=== PATIENT | female | born 1970 | race Caucasian/White ===

== ENCOUNTER → 2016-10-22 | Day surgery (SDC) | payer OTHER ==
[2016-10-22] VITALS (16 sets, daily range): BP systolic 112–132; BP diastolic 59–75; PULSE 61–82; RESP 9–17; O2SAT 89–100
[~2016-10-22] VITALS: Ht 165.1 cm; Wt 92.5 kg
[~2016-10-22] MED LIST: ASCO250T7 PO; Acetaminophen IV 1,000 MG in IV Premix 1 EACH IV ONE; Atropine 0.4 mg/mL Inj IVPUSH PRN; Atropine 0.4 mg/mL Inj ONE; Bupivacaine-MPF 0.5% W/EPI 30 mL Inj INFILTRATE ONE; CHOL10008 PO; Dexamethasone 4 mg/mL Inj IVPUSH PRN; Dexamethasone 4 mg/mL Inj ONE; EPHEDrine Sulfate 50 mg/mL Inj IM PRN; EPHEDrine Sulfate 50 mg/mL Inj IVPUSH PRN; FERR-83 PO; Glycopyrrolate 0.2 MG/ML 1mL Inj ONE; HYDROmorphone 0.5 mg/0.5 mL iSecure Syringe ONE; HYDROmorphone 1 mg/mL Inj IVPUSH PRN; INTE30PE3 IM; LISI-567 PO; Labetalol 5 mg/mL 4 mL Inj IV PRN; Lactated Ringer's 1,000 ML IV ONE; Lactated Ringer's 1,000 ML IV SCH; Lactated Ringer's 500 ML IV PRN; Neostigmine 1 mg/mL 10 mL Inj ONE; Ondansetron 2 mg/mL 2 mL Inj IVPUSH PRN; Ondansetron 2 mg/mL 2 mL Inj ONE; Phenylephrine 10,000 mCg/mL Inj IVPUSH PRN; Propofol 10,000 mCg/mL 20 mL Inj ONE; Rocuronium 10 mg/mL 5 mL Inj ONE; SIMV20TA4 PO; fentaNYL-PF 50 mCg/mL 2 mL Inj IVPUSH PRN; fentaNYL-PF 50 mCg/mL 2 mL Inj ONE; hydrALAZINE 20 mg/mL Inj IVPUSH PRN; hydrOXYzine Inj 50 MG/1 mL SDV IM PRN; oxyCODONE-Acetamin 5-325 mg Tablet PO PRN
[2016-10-22] MEDS: Lactated Ringer's 1,000 ML IV SCH ×2 (05:40→07:32)
[2016-10-22 06:56] LABS: BASOPHILS % (AUTO) 0.2 % (0-3); EOSINOPHILS % (AUTO) 1.3 % (0-5); MONOCYTES % (AUTO) 11.9 % (4-12); Mean Corpuscular Hemoglobin 29.3 pg (27.0-35.0); Mean Corpuscular Volume 83.6 fL (81-100); NEUTROPHILS % (AUTO) 58.2 % (40-74); Platelet Count 315 bil/L (150-400)
--- NOTE | 2016-10-22 07:05 | PCM.HPANE ---
Patient Data Surgeon Admitting Provider: Attending Provider:Olivia Jones MD Primary Care Physician:Jared Benoit MD Other Provider:Camelia Dong Anesthesia Reason for Visit Abnormal Uterine,Neoplasm Of Unspecified Behavior Ht/WT & BMI Height (Feet): 5 Height (Inches): 5.00 Weight (Kilograms): 92.5 Body Mass Index 33.00 Allergies Coded Allergies: Penicillins (Verified Allergy, Unknown, rash in childhood, 10/15/16) pt tolerates amoxicillin with no reaction Past Anesthesia History Anesthesia History: Denies:: Abnormal Airway, Anesthesia Reactions, Difficult Intubation, Fam Anesthesia Reaction, Fam Malignant Hypertherm, Malignant Hyperthermia Diabetes History Hx Diabetes?: No MRSA MRSA: No Medications Hypertension Medication: Yes Home Meds Incl Beta Obie: No Reported Medications Cholecalciferol (Vitamin D3) (Vitamin D3)1,000 Unit Tab.chew1,000 Unit PO DAILY 10/15/16 Ascorbic Acid (Vitamin C)250 Mg Tab.[id number] Mg PO BID 30 Days Ref 0 10/15/16 Ferrous Sulfate 325 Mg Occphp311 Mg PO BID 30 Days Ref 0 10/15/16 Interferon Beta-1A (Avonex Pen)30 Mcg/0.5 Ml Pen.ij.kit30 Mcg IM WEEKLY 10/15/16 Simvastatin 20 Mg Miwasb07 Mg PO HS Ref 0 10/15/16 Lisinopril 20 Mg [id number] Mg PO DAILY 30 Days Ref 0 10/15/16 History History of ENT Problems?: No HEENT History: Denies:: Abnormal Airway Cataracts Difficult Intubation Dysphagia Glaucoma Hearing Problem Sinus Problem TMJ Denture Type: None Teeth Condition: Within Normal Limits Hx of Heart Problems?: Yes Cardiovascular History: Positive for:: Hypertension Irregular Heartbeat (occ with MS shots ) Denies:: AICD Abdominal Aortic Aneurism Atrial Fibrillation Cardiac Surgery Chest Pain Congestive Heart Failure Coronary Artery Disease Heart Murmur Pacemaker Rheumatic Fever Valvular Heart Disease Hx of Respiratory Problem?: No Respiratory History: Denies:: Asthma COPD Emphysema Oxygen Administration Pneumonia Tuberculosis Use of C-PAP Machine Hx Neurologic Problems?: Yes Neurological History: Positive for:: Dizziness (occasional) Multiple Sclerosis (loss of feeling, lack of balance coordination) Denies:: Alzheimer's Disease Parkinson's Disease Seizures Hx of GI Problems?: No Gastrointestinal History: Denies:: Cirrhosis Diverticulitis Gall Bladder Disease Gastroesphageal Reflux Gastrointestinal Bleeding Heartburn Hepatitis Hiatal Hernia Liver Disease Rectal Bleeding Hx of Problems?: No Genitourinary History: Denies:: Urinary Tract Infection Female Hx: Denies:: Currently Problems with Breasts? Skin History: Denies:: History Skin Disorders? Pressure Ulcers Hx Musculoskeletal Problems?: Yes Musculoskeletal History: Positive for:: Back Injury (right hip sciatica) Denies:: Fibromyalgia Myasthenia Gravis Systemic Lupus Hx of Psycho/Social Problems?: No Psycho Social History: Denies:: Anxiety Hx Depression Hx Surgeries?: Yes (c section, lasik) Hx Any Other Health Problems?: Yes Other History: Denies:: Thyroid Disease History Blood Transfusions: Positive for:: Accept Blood Products? Denies:: Blood Transfusions Hx Diabetes: No Hx Alcohol Use: YesAlcoholic Drinks Per Day: holidays onlyHx Substance Use: No (second hand marijuana only) Stop/Bang S-Snoring: Do You Snore Loudly: No T-Tired: feel tired, fatigued: No O-Obsered: Observed not breath: No P-Blood Pressure: treated: Yes B- Body Mass Index > 35 kg/m2: No A- Age over 50: No N- Neck Large Circumference: No G- Gender Male: No WARD Total Score: 1 Risk Assessment Category Category 1A: Patient has history of documented sleep apnea, and HAS NOT received any narcotic, sedative or anesthesia administration during this stay. Category 1B: Patient has history of documented sleep apnea, and HAS received any narcotic , sedative or anesthesia administration during this stay Category 2: Patient has SUSPECTED Obstructive Sleep Apnea, and HAS received any narcotic , sedative or anesthesia administration during this stay. Category 3: Patient has SUSPECTED Obstructive Sleep Apnea and HAS NOT received narcotic, sedative or anesthesia administration during this stay. Category 4: Outpatient in Procedural Areas with known sleep apnea or who screen positive for High Risk via the STOP/BANG questionnaire. Exam Exam Vital Signs Vital Signs Date Time Temp Pulse Resp B/P Pulse Ox O2 Delivery O2 Flow Rate FiO2 10/22/16 06:46 36.6 74 16 124/72 96 Room Air General Appearance: Alert, Oriented X3, Cooperative, Mild Distress HEENT/AIRWAY: MP 1, Neck Movement (from), Mouth Opening (wnl) Lungs: Clear to Auscultation, Normal Air Movement (from) Heart: Exam Unremarkable Meds/Labs/Diagnostics Admission Meds Current Medications Lactated Ringer's (Lr) 1,000 ml @ 120 mls/hr Q8H20M IV Last administered on t 05:40; Start 10/22/16 at 05:00; Stop 10/22/16 at 13:19 Labs Test 10/22/16 06:45 White Blood Count 9.0th/mm3 (3.8-10.1) Red Blood Count 4.34mil/mm3 (3.90-5.20) Hemoglobin 12.7g/dL (12.0-15.6) Hematocrit 36.3% (35.0-46.0) Mean Corpuscular Volume 83.6fL (81-100) Mean Corpuscular Hemoglobin 29.3pg (27.0-35.0) Mean Corpuscular Hemoglobin Concent 35.0% (32.0-37.0) Red Cell Distribution Width 13.1% (12.3-15.4) Platelet Count 315bil/L (150-400) Neutrophils (%) (Auto) 58.2% (40-74) Lymphocytes (%) (Auto) 28.1% (14-46) Monocytes (%) (Auto) 11.9% (4-12) Eosinophils (%) (Auto) 1.3% (0-5) Basophils (%) (Auto) 0.2% (0-3) Plan Impression Patient chart reviewed, patient interviewed and anesthestic plan with risks, benefits, and alternatives discussed, and informed consent obtained. ASA Physical Status: ASA2 Mod Systemic Disease Anesthetic Plan: GA Bene/Risks/Altern/Consents: Yes HP Complete Prior to Induction: Yes Vitor Oliveros MD Oct 22, 2016 07:05
--- NOTE | 2016-10-22 11:41 | DIS ---
[address] [address] DISCHARGE SUMMARY PATIENT: REYNOLD MILLER : 1970 MR#: [id number] ADMIT: 10/22/2016 JOB ID: [id number] DIS: DATE OF DISCHARGE: 10/22/2016 This is a 45-year-old female status post hysteroscopy, D and C, laparoscopy, right RSO with lysis of adhesion. The procedure was not complicated. Plan to discharge her home when patient could ambulate well, urinate well, and the pain well controlled. She is instructed to come back to the office in two weeks for followup. She is instructed that if there is heavy vaginal bleeding, severe abdominal pain, foul-smelling discharge, fever more than 100.4, she needs to call the office or go to the ER for evaluation. Percocet and Motrin given for postop pain.
--- NOTE | 2016-10-22 11:49 | PCM.ANEP1 ---
Post Anesthesia PACU Phase 1 Assessment Vital Signs Vital Signs Date Time Temp Pulse Resp B/P Pulse Ox O2 Delivery O2 Flow Rate FiO2 10/22/16 11:41 63 15 124/68 98 Simple Mask 10 10/22/16 11:30 61 9 125/66 90 Nasal Cannula 4 10/22/16 11:20 68 14 132/71 89 Room Air 10/22/16 11:15 71 10 126/73 100 Simple Mask 10 10/22/16 11:10 72 10 120/72 98 Simple Mask 10 10/22/16 11:05 36.3 61 17 126/68 98 Simple Mask 10 10/22/16 06:46 36.6 74 16 124/72 96 Room Air Anesthetic Administered: GA Level of Alertness: Awake, talking RUTH's with Equal Strength: Yes Pain: Yes Pain Scale Score: 4 Nausea or Vomiting: No CV Function & Hydration Stable: Yes Airway Device: Endotrachial Tube Lungs: Clear to Auscultation, Normal Air Movement (from) PACU Phase 2 Assessment Complications: No Follow up Care: No Patient Instructions Provided: N/A Vitor Oliveros MD Oct 22, 2016 11:49
--- NOTE | 2016-10-22 12:01 | OP ---
[address] [address] OPERATIVE REPORT PATIENT: REYNOLD MILLER : 1970 MR#: [id number] ADMIT: 10/22/2016 JOB ID: [id number] DATE OF SURGERY: 10/22/2016 SURGEON: Olivia Jones M.D. GLAZING DEPARTMENT SUPERVISOR: Libby Yeh M.D. SUPERVISOR PUMPING physician as administrative library assistant for this procedure is necessary to get a complete and also for exposure. PREOPERATIVE DIAGNOSIS(ES): 1. A 45-year-old female, with irregular uterine bleeding. Failed office endometrial biopsy. 2. Symptomatic right pelvic mass likely right ovarian endometrioma. POSTOPERATIVE DIAGNOSIS(ES): 1. A 45-year-old female, with irregular uterine bleeding. Failed office endometrial biopsy. 2. Symptomatic right pelvic mass likely right ovarian endometrioma. INDICATION OF THE PROCEDURE: 1. A 45-year-old female, with irregular uterine bleeding. Failed office endometrial biopsy. 2. Symptomatic right pelvic mass likely right ovarian endometrioma. This is a 45-year-old female. She presented to the office for two reasons, one is pelvic discomfort and imaging. Noticed complex right ovarian cyst, likely endometrioma and also the patient has irregular vaginal bleeding. Office procedure tried for endometrial biopsy but failed. May be due to history of section caused kinking of her uterine cavity. Discussed with patient about the finding. Plan was made to have an hysteroscopy, D and C, and a laparoscopy, right salpingo-oophorectomy. Discussed the benefit, risk and alternatives of the procedure. The patient understood there is risk of infection, bleeding, perforation of the uterus, injury to the organs around the uterus including but not limited to the ureters, bladder, major vessels, nerves, and the bowels. Discussed with the patient that especially for 9 cm cyst which is likely endometrioma that made significant adhesions around the cyst that increased the risk of injury to other organs, and the patient also agreed for a laparotomy if the procedure could not be performed by laparoscopy. Informed consent signed. The patient also understood that cannot 100% exclude the risk of malignancy, although based on the findings, the possibility is very low. PROCEDURE IN DETAIL: The patient was transferred to operating room after anesthesia was noted to be adequate. She was placed in dorsal lithotomy position. She was prepared and draped as normal sterile fashion. A hysteroscopy was performed first. A speculum inserted to vagina to expose the cervix. The cervix was grasped by a single-tooth tenaculum. The uterus was carefully sounded to 8 cm and the cervix was dilated gradually from 4 to 7 mm. It was noted the difficulty in office is because of significant kinking at the internal cervical os. Then, the hysteroscopy scope was inserted to the uterine cavity and the uterine cavity was examined and noticed thickened endometrium, especially close to the internal os of cervix. There is no polyp or other abnormal finding of the uterine cavity. The scope was removed and a sharp curettage was performed. The specimen was then sent for pathology. At this time, the procedure started for laparoscopy. A Veress needle inserted into the pedicle area and after confirmed proper insertion, CO2 gas inserted to form pneumoperitoneum. At this time, the patient all the sudden has bradycardia to 40, 20 and there was loss of heart rates. Then the CO2 gas released immediately and CPR was performed for about 10 seconds and the patient's heart rate recovered gradually to 30, 40 and 60s and communicated with anesthesiologist that the patient vitals all became to normal and the procedure was allowed to continue. So CO2 gas was re-inserted to form pneumoperitoneum. The patient's vitals all continued to be stable around the whole procedure. A 12 mm incision was placed at the umbilical area and the laparoscopy scope was inserted with direct visualization. Two 5 mm incisions were placed on both lower sides of the abdomen and a 5 mm trocar inserted. At this time, the pelvic and abdominal cavity was examined. Her uterus was normal size. Right ovary and tubes both look normal. There was scanty membranous adhesion from the left ovary to the colon. It was released by LigaSure. The right ovary has a cyst, was about 9-10 cm size, thick walled, more higher tension and right tube was crowding around the cyst. The cyst was difficult to move due to adhesion likely to the posterior and right pelvic wall. Pelvic washing was performed and sent for cytology. The right ureter was noticed running on the sidewall of the pelvis and not closely connected to the right adnexa. So the right IP ligament was safely clamped, coagulated and cut. Then the right uterine ovarian ligament was coagulated in steps. Then with caution the adhesions between the right ovarian cyst and the posterior pelvic wall and right side pelvic wall was carefully lysed. During the procedure, the cyst has a small rupture and bleeding noticed with brownish old blood, and at this time, I confirmed this is an endometrioma and then incision was placed on top of the cyst. Then the old blood was irrigated and suctioned. At this time, the lysis of adhesions continued to performed between the cyst and the pelvic floor and pelvic wall. So the whole right adnexa eventually was released and it was removed from the umbilical incision. After removal of the right adnexa, the pelvis was irrigated with normal saline copiously and examined carefully. There was no other endometriosis lesion noticed. There is no active bleeding and the right ureter can see clearly running aside the uterine pelvic sidewall. Then the fascia of the umbilical incision was closed with two separate sutures of 0-Vicryl with the Lincroft instrument. Then the skin of all three incisions was closed with 4-0 Monocryl subcutaneously. The EBL during the procedure was 20 cc. All instruments, laps and gauzes counted correct twice. The patient was transferred to recovery room in a stable condition.
--- NOTE | 2016-10-24 14:42 | PATH ---
SURGICAL PATHOLOGY Attending Physician:Olivia Jones MD CASE STATUS: Signed Out PATIENT NAME: REYNOLD MILLER PID: [id number] : 1970 DATE COLLECTED:10/22/2016 20:03 SPECIMEN: 1: Endometrium, Curettage 2: Ovary +/- tube, non-tumor CLINICAL HISTORY: IRREGULAR VAGINAL BLEEDING, RIGHT OVARIAN CYST 1). ENDOMETRIAL CURETTINGS 2). RIGHT OVARY AND FALLOPIAN TUBE FINAL DIAGNOSIS: 1. Endometrial Curettings: Portions of proliferative and disordered proliferative endometrium; negative for glandular hyperplasia, cytologic atypia, and malignancy. Avulsed portion of squamous mucosa with focal features suggestive of, but not diagnostic of, low grade squamous intraepithelial lesion (CIN1 / mild dysplasia / LSIL). 2. Right Ovary and Fallopian Tube, Salpingo-oophorectomy: Benign ovarian cyst (collapsed measurement 9.5 x 5.3 x 4.5 cm), consistent with endometrioma. Negative for atypia and malignancy. Fallopian tube with no diagnostic abnormality. ICD10: N83.2 GROSS DESCRIPTION: The specimens are received in formalin, labeled with the patient's name, and sublabeled as the following: (1) endometrial curettings; (3) right ovary & fallopian tube (redesignated as 2). (1) The specimen consists of multiple fragments of loera-brown glistening murmur any hematemesis and tissue (3.0 x 1.8 x 0.5 cm in aggregate). Section code: (1A) tissue. Specimen entirely submitted. (2) The specimen consists of a ruptured ovarian cyst (9.5 x 5.3 x 4.5 cm) with attached indurated fallopian tube (length-3.4 cm, diameter-0.6 cm). The cyst has loera smooth shiny serosa with diffuse adhesions. The lining is espinoza hall and flat with no excrescences identified. No normal ovarian parenchyma is identified. The fallopian tube has dark maroon smooth shiny serosa and a hall unremarkable lumen Section code: (2A-2D) ovarian cyst, chemical sales representative; (2E) fallopian tube, serially sectioned, chemical sales representative; (2F) fimbria, bivalve, entirely submitted. Note: Per the requisition the original specimen #2 consist of pelvic washings sent to cytology for analysis. 10/23/16 DARRYL ICD-9 CODES: CPT CODES: 1: 50684, 83960 Electronically Signed Out Marisol Rooney MD [facility] [address], [place] [address] Technical component performed at [facility], [facility] [address], [place], [address]
--- NOTE | 2016-10-24 17:20 | PATH ---
SURGICAL PATHOLOGY Attending Physician:Olivia Jones MD CASE STATUS: Signed Out PATIENT NAME: REYNOLD MILLER PID: [id number] : 1970 DATE COLLECTED:10/22/2016 00:00 SPECIMEN: Pelvic Washings CLINICAL HISTORY: Pelvic Washings ICD-10 code not given Right Pelvic Mass FINAL DIAGNOSIS: PELVIC WASHINGS: NEGATIVE FOR MALIGNANT CELLS. ICD10 R19.0 GROSS DESCRIPTION: Received fresh on 10/23/2016 is approximately 20 cc of clear pink fluid. Prepared are one cell block and one Cytospin slide. Vo ICD-9 CODES: CPT CODES: 1: 38293, 48550 Electronically Signed Out Violet Lares MD [facility] [address], [place] [address] Technical component performed at [facility], [facility] [address], [place], [address]
== END | disposition home or self-care (01) ==
LOC: SAS 05:57
PROVIDERS: ATTEND Obstetrics & Gynecology
DX: N93.9 Abnormal uterine and vaginal bleeding, unspecified (principal); N83.291 Other ovarian cyst, right side; I10 Essential (primary) hypertension; R42 Dizziness and giddiness; F12.10 Cannabis abuse, uncomplicated; Z79.899 Other long term (current) drug therapy; Z88.0 Allergy status to penicillin
CPT/HCPCS: 36415; 58558; 58661; 85025; J0131; J0461; J1100; J1170; J1885; J2250; J2405; J2710; J3010; J7120